=== PATIENT | male | born 1935 | race Caucasian/White ===

== ENCOUNTER 2018-08-23 04:56 | Inpatient (IN) ==
--- NOTE | 2018-07-06 09:14 | PAT Medication Instructions ---
Medication Instructions Date of Service July 06, 2018 Home Medications Hemp Extract 1 dose PO QAM acetaminophen [Tylenol Arthritis] 650 mg PO TID aspirin [Aspirin Low Dose] 81 mg PO QAM levothyroxine 100 mcg PO QAM metoprolol tartrate 25 mg PO BID pantoprazole 40 mg PO QAM prednisone 5 mg PO QAM rosuvastatin [Crestor] 20 mg PO QPM DO NOT take the morning of surgery Hemp Extract 1 dose PO QAM Take morning of surgery With a small sip of water, OTHERWISE NOTHING TO EAT OR DRINK AFTER MIDNIGHT: acetaminophen [Tylenol Arthritis] 650 mg PO TID aspirin [Aspirin Low Dose] 81 mg PO QAM levothyroxine 100 mcg PO QAM metoprolol tartrate 25 mg PO BID pantoprazole 40 mg PO QAM prednisone 5 mg PO QAM Take evening before surgery acetaminophen [Tylenol Arthritis] 650 mg PO TID metoprolol tartrate 25 mg PO BID rosuvastatin [Crestor] 20 mg PO QPM Other Notes If you have any questions please call us at [phone] or [phone] or [phone] or [phone]
--- NOTE | 2018-07-06 12:14 | Anesthesiology Consultation ---
Date of Service July 06, 2018 Assessment & Plan (1) Encounter for pre-operative examination: - No previous anesthesia records here. Chart Review Chart Review: Acceptable Risk for Surgery and Patient seen in Pre Admission Testing Consults Requested medical & cardiac (Dr. Payne (08/09) & Dr. Lim (07/20)) Patient was seen by PCPs office on 08/09 for preoperative evaluation. Per note from this visit, "He should be okay for surgery. I do not anticipate any problems." Patient was also seen by cardiology on 07/20 for preoperative risk assessment. At that visit, they ordered an ECHO and nuclear stress test to update testing prior to surgery, both of which were done on 08/06/18. (See results above) Correspondence from Cardiology dated 08/09 states that cardiac testing showed no inducible ischemia, preserved LV function, and no significant heart disease. "No further cardiac testing is warranted prior to planned orthopedic surgery." Teaching & Discussion Pre-Anesthesia Teaching/Discussion Notes: Instructed NPO after midnight before surgery, except medications with 15 cc of water. Medication instructions provided according to the PAT guidelines. History Surgery Operation Date: 08/23/18 07:00 Proposed Procedures p Right Total Hip Arthroplasty - Jeremías Robles Height/Weight Height: 5 ft 10 in Weight: 94 kg Allergies Allergy/AdvReac Type Severity Reaction Status Date / Time No Known Allergies Allergy Verified 06/30/18 11:23 Medications Home Medications Medication Instructions Recorded Confirmed Last Taken Hemp Extract 1 dose PO QAM 06/30/18 Unknown acetaminophen [Tylenol Arthritis 650 mg PO TID 06/30/18 06/30/18 Unknown Pain] aspirin [Aspirin Low Dose] 81 mg PO QAM 06/30/18 06/30/18 Unknown levothyroxine 100 mcg PO QAM 06/30/18 06/30/18 Unknown metoprolol tartrate 25 mg PO BID 06/30/18 06/30/18 Unknown pantoprazole 40 mg PO QAM 06/30/18 06/30/18 Unknown prednisone 5 mg PO QAM 06/30/18 06/30/18 Unknown rosuvastatin [Crestor] 20 mg PO QPM 06/30/18 06/30/18 Unknown Daily Multivitamin 1 tab PO QAM 07/06/18 07/06/18 Unknown glucosamine-chondroitin [Osteo 1 tab PO QAM 07/06/18 07/06/18 Unknown Bi-Flex] Past Medical History Medical History Degenerative disc disease LUMBAR REGION Diverticular disease GERD (gastroesophageal reflux disease) Hx of myocardial infarction 1998 - SEEN IN [facility]- SENT [facility] Hyperlipidemia Hypothyroid Irregular heartbeat On prednisone therapy Back Pain Osteoarthritis Osteoporosis Exercise / Class Metabolic Activity III < 4 Walking/Shop/Light housework (Limited due to hip pain. Can climb FOS. Denies CP or SOB. Just alot of pain. ) Past Surgical History Surgical History History of cataract surgery BOTH EYES Hx of appendectomy 1956 Hx of cardiac catheterization 1998 WITH ONE STENT - MASCOT; 2002 MASCOT; 2015 MASCOT - ALL DONE AT [facility] Hx of colonoscopy Hx of heart bypass surgery 2015 -[facility] - X2 VESSELS. DONE D/T S/S OF HEART ATTACK Hx of hemorrhoidectomy Hx of hernia repair Inguinal (unsure which side) Hx of tonsillectomy [id number] Past Anesthesia History No Hx of Anesthesia Complications and No Family Hx of Anesthesia Complications History of PONV No Hx of PONV and No Hx of Motion Sickness Social History Smoking Status: Never smoker Do You Dip or Chew Tobacco: No Hx Alcohol Use: No Hx Substance Use: No Review of Systems Patient denies chest pain, shortness of breath, dyspnea on exertion, cough, wheezing, palpitations. +Joint Pain (Back, Hips, shoulders, neck, etc) +Acid reflux (controlled with current medications) +palpitations (with irregular heart beat) Physical Exam Vital Signs BP: 111/68 P: 72 R: 18 T: 97.3 SPO2: 96% on RA ENMT Mouth: + dental restorations Thyromental Distance: > or= 3.5 Finger Breadths (4) Mallampati Class: I Neck normal visual inspection and trachea midline; neck extension not limited Respiratory normal respiratory effort Auscultation: lungs clear to auscultation bilaterally Cardiovascular Rate/Rhythm: regular rate and regular rhythm Heart Sounds: no murmur Vessels: no carotid bruit Neurologic moves all extremities Psychiatric Orientation: alert and oriented x 3 Testing Electrocardiogram Date: 07/06/18 Findings: + NSR @ (69) Inferior infarct, age undetermined Chest X-Ray Date: 07/06/18 Findings: + NAD FINDINGS: Cardiac silhouette is normal in size. Prior median sternotomy with probable CABG. Calcification of the thoracic aortic arch. Mild interstitial coarsening of the lung bases suggestive of fibrotic change. There is no pneumothorax, pleural effusion or overt pulmonary edema. Degenerative changes are seen about the shoulders and spine. IMPRESSION: No acute process. Echocardiogram Date: 08/06/18 EF: 55-59% Other Findings: + LVH (Mild, concentric) and + diastolic dysfunction (Grade I) The left ventricular cavity size is normal. The LV wall thickness is moderately increased (concentric). The basal septum is thickened and angulated consistent with sigmoid septum. There is mild hypokinesis of the posterior wall at the base with otherwise normal LV function. The qualitative LVEF is 55-59% The left ventricular diastolic function is mildly abnormal (grade I). Mild aortic valve sclerosis is present. Mild secondary mitral regurgitation is present. The aortic root is mildly enlarged. Stress Test Date: 08/06/18 Type: nuclear Findings: + WNL Resting EF: 71% Resting LV Function: normal Resting RWMA: + none Valvular Disease: no significant valvular disease Myocardial perfusion imaging is normal. Overall left ventricular systolic function was normal without RWMA. The left ventricular EF was 71%. Stress and rest SPECT images demonstrate homogeneous tracer distribution throughout the myocardium. Gated SPECT imaging reveals normal myocardial thickening and wall motion. Laboratory Results 07/06/18 12:58 07/06/18 12:58 PT 10.3 Seconds (9.0-12.0) 07/06/18 12:58 INR 1.0 (0.9-1.1) 07/06/18 12:58 APTT 24.1 Seconds (21.0-31.0) 07/06/18 12:58 Urine Color Yellow 07/06/18 12:58 Urine Appearance Clear (Clear) 07/06/18 12:58 Urine pH 5.0 (4.5-7.5) 07/06/18 12:58 Ur Specific [place] 1.021 (1.000-1.030) 07/06/18 12:58 Urine Protein Negative (Negative) 07/06/18 12:58 Urine Glucose (UA) Negative (Negative) 07/06/18 12:58 Urine Ketones Negative (Negative) 07/06/18 12:58 Urine Nitrite Negative (Negative) 07/06/18 12:58 Ur Leukocyte Esterase Negative (Negative) 07/06/18 12:58 Blood Type A Positive 07/06/18 12:58 Antibody Screen NEGATIVE 07/06/18 12:58 07/06/18 12:58 Urine Culture - Final Urine,Clean Catch No growth - less than 1,000 colonies/mL. [facility] 08/10/18 WBC: 8.07 H/H: 12.7 L/40.2 PLATELETS: 182 SODIUM: 144 POTASSIUM: 4.1 CHLORIDE: 104 CO2: 28 BUN: 19 CREATININE: 1.0 GLUCOSE: 111 HgBA1C: 6.3 H
--- NOTE | 2018-07-06 13:47 | XRay Report ---
XR chest Pre-admission PA/Lat HISTORY: 83 years-old Male pat preoperative exam. No acute chest complaints COMPARISON: None available TECHNIQUE: PA and lateral views of the chest FINDINGS: Cardiac silhouette is normal in size. Prior median sternotomy with probable CABG. Calcification of th e thoracic aortic arch. Mild interstitial coarsening of the lung bases suggestive of fibrotic change. There is no pneumothorax, pleural effusion or overt pulmonary edema. Degenerative changes are seen a bout the shoulders and spine. IMPRESSION: No acute process. The above report was generated using voice recognition software. It may contain grammatical, syntax o r spelling errors. Electronically signed by: Marco Antonio Pete M.D. 07/06/2018 1:46 PM
[2018-07-06 14:25] LABS: Basophils # (auto) 0.03 K/uL (0-0.2); Basophils % (auto) 0.4 %; Eosinophils # (auto) 0.08 K/uL (0-0.5); Eosinophils % (auto) 1.1 %; Hematocrit (blood only) 37.6 % (42-52); Hemoglobin 12.4 g/dL (14.0-18.0); Immature Granulocytes # (auto) 0.01 K/uL (0.00-0.02); Immature Granulocytes % (auto) 0.1 %; Lymphocytes % (auto) 20.3 %; Mean Corpuscular Volume 96.4 fL (80-100); Mean Platelet Volume 10.3 fL (7.4-10.4); Monocytes # (auto) 0.46 K/uL (0.11-0.59); Monocytes % (auto) 6.2 %; Neutrophils # (auto) 5.31 K/uL (1.4-6.5); Neutrophils % (auto) 71.9 %; Platelet Count 176 K/uL (130-400); RDW Coefficient of Variation 15.3 % (11.5-14.5); RDW Standard Deviation 53.3 fL (36.4-46.3); White Blood Count 7.39 K/uL (4.8-10.8)
[2018-07-06 14:29] LABS: Albumin Level 3.5 gm/dl (3.4-5.0); Calcium 9.1 mg/dl (8.5-10.1); Creatinine Clr Calc Pharmacy 60.2 ml/min; Est GFR (Non-African American) 63.9; Potassium 4.4 mmol/L (3.5-5.1)
[2018-07-06 14:32] LABS: Albumin Globulin Ratio 1.2 (0.9-2); Bilirubin,Total 0.5 mg/dl (0.2-1); Globulin 2.9 gm/dl (2.5-4.0); Total Protein 6.4 gm/dl (6.4-8.2)
[2018-07-06 14:36] LABS: Appearance Urine Clear (Clear); Bilirubin Urine Negative (Negative); Blood Urine Negative (Negative); Color Urine Yellow; Glucose Urine UA Negative (Negative); Ketones Urine Negative (Negative); Leukocyte Esterase Urine Negative (Negative); Nitrite Urine Negative (Negative); Protein Urine Negative (Negative); Specific Gravity Urine 1.021 (1.000-1.030); Urobilinogen Urine Negative (Negative)
[2018-07-06 14:40] LABS: Partial Thromboplastin Ratio 0.9; Partial Thromboplastin Time 24.1 Seconds (21.0-31.0); Prothrombin Time 10.3 Seconds (9.0-12.0)
--- NOTE | 2018-08-20 09:28 | History & Physical Report ---
Date of Service August 20, 2018 Assessment & Plan (1) Degenerative joint disease of right hip: plan is to admit and undergo right tania History of Present Illness Chief Complaint: right hip pain Primary Care Provider: Tremaine Payne MD Pt with terrible right hip pain for years. Has tried nsaids and pt with no relief. Allergies Allergy/AdvReac Type Severity Reaction Status Date / Time No Known Allergies Allergy Verified 06/30/18 11:23 Home Medications Home Medications Medication Instructions Recorded Confirmed Type Hemp Extract 1 dose PO QAM 06/30/18 History acetaminophen [Tylenol Arthritis 650 mg PO TID 06/30/18 06/30/18 History Pain] aspirin [Aspirin Low Dose] 81 mg PO QAM 06/30/18 06/30/18 History levothyroxine 100 mcg PO QAM 06/30/18 06/30/18 History metoprolol tartrate 25 mg PO BID 06/30/18 06/30/18 History pantoprazole 40 mg PO QAM 06/30/18 06/30/18 History prednisone 5 mg PO QAM 06/30/18 06/30/18 History rosuvastatin [Crestor] 20 mg PO QPM 06/30/18 06/30/18 History Daily Multivitamin 1 tab PO QAM 07/06/18 07/06/18 History glucosamine-chondroitin [Osteo 1 tab PO QAM 07/06/18 07/06/18 History Bi-Flex] Past Med/Surg History Medical History Degenerative disc disease LUMBAR REGION Diverticular disease GERD (gastroesophageal reflux disease) Hx of myocardial infarction 1998 - SEEN IN [facility]- SENT TO [facility] Hyperlipidemia Hypothyroid Irregular heartbeat On prednisone therapy Back Pain Osteoarthritis Osteoporosis Surgical History History of cataract surgery BOTH EYES Hx of appendectomy 1956 Hx of cardiac catheterization 1998 WITH ONE STENT - NEW [place]EY; 2002 NEW CANEY; 2015 NEW CANEY - ALL DONE AT [facility] Hx of colonoscopy Hx of heart bypass surgery 2016 -[facility] - X2 VESSELS. DONE D/T S/S OF HEART ATTACK Hx of hemorrhoidectomy Hx of hernia repair Inguinal (unsure which side) Hx of tonsillectomy [id number] Social History Preferred Language: Faroese Communication Ability: Effective Beliefs That Will Affect Care: None Current Living Situation: Alone Current Living Situation Comment: LIVES IN A 2 STORY HOUSE Feels Safe at Home: Yes Safety Concerns: Feels Safe At This Time Smoking Status: Never smoker Do You Dip or Chew Tobacco: No Second Hand Exposure: No Hx Alcohol Use: No Hx Substance Use: No Review of Systems All systems reviewed & are unremarkable except as noted in HPI & below Physical Exam Constitutional: WD/WN, vitals as above Neck: trachea midline, no thyromegaly Respiratory: normal respiratory effort, lungs clear to auscultation Cardiovascular: RRR, no murmur, no edema Gastrointestinal (Abdomen): normal bowel sounds, soft, nontender, no hepatosplenomegaly Musculoskeletal: Hip: + limited ROM of hip and + hip ROM with crepitation
[2018-08-23] MEDS ORDERED: FAMOTIDINE 20 MG TAB PO SCH (06:00)
[2018-08-23] MEDS ORDERED: dexAMETHasone 4 MG TAB PO SCH (06:00)
[2018-08-23] MEDS ORDERED: CEFAZOLIN 2000MG 2,000 MG/15 ML SYR IV SCH (06:00)
[2018-08-23] MEDS ORDERED: ROPIVACAINE 0.5% HCL/PF 150 MG, BUPIVACAINE 0.5% MPF 30 ML, EPINEPHrine 30MG/30ML (OR U... INFIL SCH (06:00)
[2018-08-23] MEDS ORDERED: LR 60ML/HR IV SCH (06:00)
[2018-08-23] MEDS ORDERED: METOCLOPRAMIDE HCL 10 MG TABLET PO SCH (06:00)
[2018-08-23] MEDS ORDERED: CeleBREX 200 MG CAP PO SCH (06:00)
[2018-08-23] MEDS ORDERED: TRANEXAMIC ACID 1,000 MG **IV Pre-op IV SCH (06:00)
[2018-08-23] MEDS ORDERED: ACETAMINOPHEN 500 MG TAB PO SCH (06:00)
[2018-08-23] MEDS ORDERED: LR 500ML BOLUS, THEN 15ML/HR IV SCH (06:00)
[2018-08-23] MEDS ORDERED: BUPIVACAINE 0.5 % 5 MG/1 ML PF 10ML VIAL ONE (06:27)
[2018-08-23] MEDS ORDERED: TRANEXAMIC ACID 1,000 MG **IV Intra-op IV SCH (06:30)
[2018-08-23] MEDS ORDERED: BACITRACIN INJ 50,000 UNIT VIAL ONE (06:30)
[2018-08-23] MEDS ORDERED: ORTHO JOINT ANESTHETIC ONE (06:30)
[2018-08-23] MEDS ORDERED: ePHEDrine sulfate 50 MG/ML AMP IV PRN (06:33)
[2018-08-23] MEDS ORDERED: ONDANSETRON INJ 2 MG/ML 2 ML VIAL IV PRN ×2 (06:33→09:53)
[2018-08-23] MEDS ORDERED: ATROPINE SULFATE 0.1 MG/ML 10ML SYR IV PRN (06:33)
--- NOTE | 2018-08-23 06:39 | History & Physical Bridge Note ---
Date of Service August 23, 2018 History & Physical Bridge Note I have examined the patient, reviewed the History & Physical and in the interval since the performance of the History & Physical I have noted the following changes of clinical significance: no changes noted
[2018-08-23] MEDS ORDERED: LIDOCAINE HCL 2% 2 ML VIAL/AMP(20MG/ML) INFIL ONE (06:44)
[2018-08-23] MEDS ORDERED: PROPOFOL IV EMULSION 10 MG/ML 20 ML VIAL IV ONE ×2 (06:44)
[2018-08-23] MEDS ORDERED: MIDAZOLAM HCL 1 MG/ML 2ML VIAL ONE (06:45)
[2018-08-23] MEDS ORDERED: fentaNYL citrate 100 MCG/2 ML VIAL ONE ×2 (06:45→07:42)
[2018-08-23] MEDS ORDERED: ROCURONIUM BROMIDE 10 MG/ML 5 ML VIAL ONE (07:09)
[2018-08-23] MEDS ORDERED: NEOSTIGMINE METHYLSULFATE 5 MG/5 ML SYR ONE (07:51)
[2018-08-23] MEDS ORDERED: GLYCOPYRROLATE 0.2 MG/ML VIAL ONE (07:51)
[2018-08-23] MEDS ORDERED: ONDANSETRON INJ 2 MG/ML 2 ML VIAL ONE (07:51)
--- NOTE | 2018-08-23 08:14 | Post Operative Brief Note ---
Immediate Post Op Note v1 Date of Surgery August 23, 2018 Pre & Post Diagnosis Operation Date: 08/23/18 07:00 Pre-Op Diagnosis: Right Hip Osteoarthritis Post-Op Diagnosis: Right Hip Osteoarthritis Procedure Operation Date: 08/23/18 07:00 Actual Procedures p Right Total Hip Arthroplasty, Uncemented(Right) - Jeremías Robles Surgeon Jeremías Robles Heel Builder Linconl Centeno PA-C Estimated Blood Loss 30 Findings Consistent with Post-Op Diagnosis Drains Hemovac Drain Complications none Disposition Disposition: Recovery Room
--- NOTE | 2018-08-23 08:16 | Operative Report ---
Post Operative Report Pre & Post Diagnosis Operation Date: 08/23/18 07:00 Pre-Op Diagnosis: Right Hip Osteoarthritis Post-Op Diagnosis: Right Hip Osteoarthritis Procedure Operation Date: 08/23/18 07:00 Actual Procedures p Right Total Hip Arthroplasty, Uncemented(Right) - Jeremías Robles Surgeon Jeremías Robles Education And Training Coordinator Lincoln Centeno PA-C Estimated Blood Loss 30 Findings Consistent with Post-Op Diagnosis Specimens None Complications none Disposition Disposition: Recovery Room Description of Procedure IMPLANTS USED: [place] size 60 mm Trident 2 Tritanium acetabular cup, one acetabular screw, a 36 mm X3 elevated liner, a #8 Accolade 2 stem with a 127 degree neck, 36 mm +0 ceramic INDICATIONS: Mr. Juan is a pleasant male who has unfortunately failed all forms of conservative measures. Therefore, they have has decided to undergo elective surgical intervention. All risks and benefits of the surgery were discussed with the patient and the family in entirety. PROCEDURE: The patient was brought to the operating room and properly identified by myself, anesthesia, and staff. Patient was given a general anesthetic and placed on the operating table with the right hip up. The hip was then prepped and draped in the standard orthopedic fashion. We made a standard posterolateral approach over the greater trochanteric area. We then dissected down to subcutaneous tissue until the fascia was identified. We incised the fascia in line with the skin incision. We then split the gluteus el muscles with finger dissection. We then put the Charnley retractor in place. We placed the retractor underneath the gluteus medius to expose the piriformis. The piriformis was then tagged with a tag suture and released from the insertion from the greater trochanteric area with the use of electrocautery. We then performed a T capsulotomy and the femoral head and neck were atraumatically dislocated. We then performed femoral neck osteotomy at the pre-template site. We removed the femoral head and neck without difficulty. We then placed the retractor around the acetabulum. We then began to ream the acetabulum to the appropriate size. We then impacted the cup into place and had a very good fixation within the pelvis. We then put the liner in place as well. Then using multiple size approaches from the Accolade 2 system a size #8 fit very nicely in the proximal femur. I then put trial components in place. WE had very good range of motion, excellent stability, and excellent leg length equality. We removed the trial components and irrigated the wound. We then impacted the components in place and irrigated the wound once more. We then closed the capsule and fascia with a 0 Vicryl suture, the deep dermis with 2-0 Vicryl suture, and finally the skin with a running 3-0 Vicryl subcuticular stitch. A sterile dressing was applied. The patient was taken to the recovery room in stable condition. Due to the complex nature of the procedure, the entire surgery was performed with the operational assistance of Lincoln Centeno PA-C. The assistant professor of psychology was under direct supervision, was involved in the actual performance of all aspects of the surgical procedure including hemostasis, tissue retraction and incision, instrument management, patient positioning, and wound closure. I attest to the content of the Intraoperative Record and any orders documented therein. Any exceptions are noted below.
[2018-08-23] MEDS: fentaNYL citrate 100 MCG/2 ML VIAL IV PRN ×2 (08:55→09:03)
--- NOTE | 2018-08-23 09:24 | Anesthesiology Progress Note ---
Date of Service August 23, 2018 Anesthesia Post Procedure Vital Signs Vital Signs: Temp Pulse Pulse Resp BP Pulse Ox 08/23/18 09:15 97.3 F L 67 18 117/69 95 08/23/18 09:05 70 18 121/70 95 08/23/18 08:55 70 17 118/77 97 08/23/18 08:45 68 21 118/65 96 08/23/18 08:37 97.7 F 70 20 126/79 97 08/23/18 05:47 97.9 F 68 18 147/72 H 97 Pain Intensity Right Hip: Pain Intensity: 3 Transfer of Care Handoff Completed per policy Notes Mental Status: alert / awake / arousable and participated in evaluation Patient Amnestic to Procedure: Yes Nausea / Vomiting: adequately controlled Pain: adequately controlled Airway Patency, RR, SpO2: stable & adequate BP & HR: stable & adequate Hydration State: stable & adequate Anesthetic Complications: no major complications apparent and Pt Satisfied with anesthetic care
[2018-08-23] MEDS ORDERED: METOCLOPRAMIDE HCL INJ 5 MG/ML 2 ML VIAL IV PRN (09:53)
[2018-08-23] MEDS ORDERED: OXYCODONE HCL IR 5 MG TAB (IMMEDIATE RELEASE) PO PRN (09:53)
[2018-08-23] MEDS ORDERED: ALUMINUM/MAGNESIUM SUSP 30 ML UDC PO PRN (09:53)
[2018-08-23] MEDS ORDERED: MAGNESIUM HYDROXIDE SUSP 30 ML UDC PO PRN (09:53)
[2018-08-23] MEDS ORDERED: BISACODYL 10 MG SUPP PR PRN (09:53)
[2018-08-23] MEDS ORDERED: NALOXONE HCL 0.4 MG/1 ML VIAL/CARP IV PRN (09:53)
[2018-08-23] MEDS: SODIUM CHLORIDE 0.9% 1000ML 1,000 ML IV SCH ×2 (12:00→21:58)
[2018-08-23] MEDS: ACETAMINOPHEN 500 MG TAB PO SCH ×2 (13:20→22:03)
[2018-08-23] MEDS ORDERED: TRANEXAMIC ACID 1,000 MG in 0.9 % SODIUM CHLORIDE 100 ML IV SCH (14:00)
[2018-08-23] MEDS: CEFAZOLIN 2000MG 2,000 MG/15 ML SYR IV SCH ×2 (15:54→22:07)
[2018-08-23] MEDS: TRAMADOL HCL 50 MG TABLET PO PRN (17:35)
[2018-08-23] MEDS ORDERED: SENNA 8.6 MG TAB PO SCH (21:00)
[2018-08-23] MEDS ORDERED: ROSUVASTATIN CALCIUM 20 MG TAB PO SCH (21:00)
[2018-08-23] MEDS: METOPROLOL TARTRATE 25 MG TAB PO SCH (22:02)
[2018-08-23] MEDS: ASPIRIN 81 MG ECTAB PO SCH (22:02)
[2018-08-23] MEDS: DOCUSATE SODIUM 100 MG CAP PO SCH (22:02)
[2018-08-24] MEDS: ACETAMINOPHEN 500 MG TAB PO SCH ×2 (05:56→13:42)
[2018-08-24 06:07] LABS: Basophils # (auto) 0.01 K/uL (0-0.2); Basophils % (auto) 0.1 %; Hematocrit (blood only) 36.1 % (42-52); Immature Granulocytes # (auto) 0.05 K/uL (0.00-0.02); Immature Granulocytes % (auto) 0.3 %; Lymphocytes # (auto) 1.69 K/uL (1.2-3.4); Lymphocytes % (auto) 11.4 %; Mean Corpuscular Hgb Conc 33.2 g/dL (32-36); Mean Corpuscular Volume 97.3 fL (80-100); Mean Platelet Volume 10.3 fL (7.4-10.4); Monocytes # (auto) 1.41 K/uL (0.11-0.59); Monocytes % (auto) 9.5 %; Neutrophils # (auto) 11.72 K/uL (1.4-6.5); Neutrophils % (auto) 78.7 %; Platelet Count 153 K/uL (130-400); RDW Standard Deviation 50.1 fL (36.4-46.3); Red Blood Count 3.71 M/uL (4.7-6.1); White Blood Count 14.88 K/uL (4.8-10.8)
[2018-08-24] MEDS ORDERED: LEVOTHYROXINE SODIUM 100 MCG TABLET PO SCH (06:30)
[2018-08-24 06:40] LABS: BUN Creatinine Ratio 25.9 (10-20); Calcium 8.3 mg/dl (8.5-10.1); Creatinine Clr Calc Pharmacy 59.6 ml/min; Est GFR (African American) 73.2; Est GFR (Non-African American) 63.1; Potassium 4.5 mmol/L (3.5-5.1)
--- NOTE | 2018-08-24 07:34 | Anesthesiology Progress Note ---
Date of Service August 24, 2018 Anesthesia Post Procedure Vital Signs Vital Signs: Temp Pulse Pulse Resp BP Pulse Ox 08/24/18 03:33 36.5 C 86 18 155/70 H 95 08/23/18 23:30 36.7 C 77 16 147/74 H 94 08/23/18 22:01 78 18 139/75 96 08/23/18 19:15 36.5 C 85 16 122/73 93 08/23/18 16:12 36.7 C 81 18 135/73 94 08/23/18 12:50 36.6 C 74 18 148/76 H 96 08/23/18 11:41 36.4 C L 74 15 108/64 98 08/23/18 10:40 72 15 128/77 98 08/23/18 10:10 63 16 115/64 08/23/18 09:40 36.5 C 70 14 120/68 08/23/18 09:25 68 17 113/66 96 08/23/18 09:15 36.3 C L 67 18 117/69 95 08/23/18 09:05 70 18 121/70 95 08/23/18 08:55 70 17 118/77 97 08/23/18 08:45 68 21 118/65 96 08/23/18 08:37 36.5 C 70 20 126/79 97 Pain Intensity Right Hip: Pain Intensity: 3 Notes Mental Status: alert / awake / arousable and participated in evaluation Patient Amnestic to Procedure: Yes Nausea / Vomiting: adequately controlled Pain: adequately controlled Airway Patency, RR, SpO2: stable & adequate BP & HR: stable & adequate Hydration State: stable & adequate Anesthetic Complications: no major complications apparent and Pt Satisfied with anesthetic care
[2018-08-24] MEDS ORDERED: dexAMETHasone 10 MG in SYRINGE 0 ML IV SCH (08:00)
[2018-08-24] MEDS: METOPROLOL TARTRATE 25 MG TAB PO SCH (08:51)
[2018-08-24] MEDS: ASPIRIN 81 MG ECTAB PO SCH (08:51)
[2018-08-24] MEDS: DOCUSATE SODIUM 100 MG CAP PO SCH (08:51)
[2018-08-24] MEDS ORDERED: PANTOprazole 40 MG TAB PO SCH (09:00)
[2018-08-24] MEDS ORDERED: predniSONE 5 MG TAB PO SCH (09:00)
--- NOTE | 2018-08-24 09:19 | Progress Note ---
DATE: 08/24/2018 SUBJECTIVE: The patient is postop day 1 status post right total hip arthroplasty. He is currently sitting up in his chair at the bedside and is in good spirits. He has no complaints this morning. He states that he has good pain control. He denies shortness of breath, chest pain, lightheadedness. OBJECTIVE: Silverlon dressing is clean, dry and intact. Thigh is soft and nontender. Calves were soft, nontender. Neurovascularly intact. Toes are mobile. Hip was located. Hemovac output drainage was 20 mL from the previous shift and hemoglobin was 12.0. ASSESSMENT: Postop day 1 status post right total hip arthroplasty. PLAN: Begin PT, OT protocols. Weightbearing as tolerated. Continue DVT prophylaxis and pain management as written. Discharge planning. The patient is hoping to go to [facility] post discharge. Case Management has been consulted and is arranging authorizations at this point in time. Dr. Baugh will see the patient later today to see if the patient is ready for discharge. JOSE M
[2018-08-24] MEDS: TRAMADOL HCL 50 MG TABLET PO PRN ×2 (13:42→18:12)
--- NOTE | 2018-08-27 01:48 | Discharge Summary ---
DISCHARGE DIAGNOSIS: Degenerative joint disease, right hip. SECONDARY DIAGNOSES: Degenerative disc disease of the lumbar spine, diverticular disease, gastroesophageal reflux disease, history of CAD with myocardial infarction in 1998, hyperlipidemia, hypothyroidism, irregular heartbeat, osteoporosis. CONSULTS: None. COMPLICATIONS: None. PROCEDURES: Right total hip arthroplasty performed by Dr. Robles on 08/23/2018. BRIEF HISTORY: As dictated in the history and physical. HOSPITAL SUMMARY: The patient was admitted on the above-noted date and had the above-noted surgery performed, which he tolerated well. On his first postoperative day, he was sitting up in his chair at the bedside and was in good spirits. He had no complaints that morning. States that he had good pain control. Denies shortness of breath, chest pain or lightheadedness. A Silverlon dressing was clean, dry and intact. Thigh is soft and nontender. Calves were soft, nontender. Neurovascularly, he is intact. Toes were mobile. Hip was located. Hemovac output drain was 20 mL for the previous shift and hemoglobin was 12.0. He was started on physical therapy protocol and continued on DVT prophylaxis and pain management. He was progressing well with his physical therapy and had ambulated 325 feet with physical therapy. The patient was planning for [facility] rehab facility post-discharge. He was remaining stable and was progressing with his PT. He has been accepted by [facility] and authorization has been approved. It was felt that he was stable for discharge and was discharged to [facility]hab on 08/24/2018. For further review, please see chart. LABORATORY AND X-RAY DATA: As per chart. DISCHARGE INSTRUCTIONS: The patient was discharged to [facility] on 08/24/2018. DIET: Regular. ACTIVITY: Weightbearing as tolerated on right lower extremity with walker. Follow [facility] instruction sheets and special care instructions as noted. Follow up with Dr. Robles in 2 weeks. The patient to call for appointment if one has not been made for you. DISCHARGE MEDICATIONS: Acetaminophen 1000 mg p.o. q. 8 hours, aspirin 81 mg p.o. b.i.d., cefadroxil 500 mg p.o. b.i.d., Colace 100 mg p.o. b.i.d. for 5 days, sennosides 17.2 mg p.o. at bedtime, Dulcolax suppository 10 mg MD daily p.r.n. for 5 days. Resume home meds as listed. Stop taking Tylenol Arthritis Pain medication, aspirin dosage as previous and glucosamine and chondroitin.
== END 2018-08-24 18:15 | DRG 470 ==
LOC: ASU 04:56 → 3E 09:07